=== PATIENT | male | born 1990 | race Caucasian/White ===

== ENCOUNTER 2019-08-23 08:48 | Emergency (ER) | payer OTHER ==
[~2019-08-23] VITALS: Ht 172.7 cm; Wt 74.8 kg
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
[2019-08-23] MEDS ORDERED: IBUPROFEN 600 MG TABLET PO ONE ×2 (09:28→09:30)
[2019-08-23 10:58] VITALS: BP 122/84
--- NOTE | 2019-08-23 10:58 | NUR ---
Patient discharged to home in stable condition. Prescription provided to patient. Written and verbal after care instructions given. Patient verbalizes understanding of instruction.
== END 2019-08-23 11:09 | disposition home or self-care (01) ==
LOC: ER 08:52
DX: S60.221A Contusion of right hand, initial encounter (principal); Z60.2 Problems related to living alone; W05.2XXA Fall from non-moving motorized mobility scooter, initial encounter; Y93.55 Activity, bike riding; Y92.89 Other specified places as the place of occurrence of the external cause; Y99.8 Other external cause status
CPT/HCPCS: 73130-TC